=== PATIENT | male | born 2000 | race Caucasian/White ===

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

== ENCOUNTER → 2023-02-23 | Outpatient (CLI) | payer OTHER ==
[2023-02-23 16:07] LABS: African American GFR (CKD) 123.3 (60.0-200.0); Albumin 4.8 g/dL (3.8-4.9); Blood Urea Nitrogen 8.8 mg/dL (9.0-27.0); C Reactive Protein <0.30 mg/dL (0.00-0.80); Calcium 10.3 mg/dL (8.7-10.3); Carbon Dioxide 26.9 mmol/L (20.0-27.5); Chloride 100 mmol/L (96-109); Glucose 87 mg/dL (70-110); Non-African American GFR(CKD) 106.4 (60.0-200.0); Phosphorus 3.5 mg/dL (2.4-5.1); Potassium 4.1 mmol/L (3.5-5.5); Sodium 139 mmol/L (135-145)
[2023-02-23 19:26] LABS: Gliadin AB IgA, Deaminated NEGATIVE (NEGATIVE); Gliadin AB IgA, Unit 1.5 U/mL; Gliadin AB IgG, Deaminated NEGATIVE (NEGATIVE); Gliadin AB IgG, Unit <0.4 U/mL
== END | disposition home or self-care (01) ==
LOC: LABWHC1 09:26
PROVIDERS: ATTEND Nurse Practitioner Family
DX: K59.09 Other constipation (principal); R63.4 Abnormal weight loss
CPT/HCPCS: 36415; 80069; 83516; 85652; 86140

== ENCOUNTER → 2023-03-02 | Outpatient (CLI) | payer OTHER ==
--- NOTE | 2023-03-02 20:13 | CT ---
EXAMINATION TYPE: CT abdomen pelvis wo/w con CT DLP: 908.0 mGycm, Automated exposure control for dose reduction was used. DATE OF EXAM: 03/02/2023 7:39 PM COMPARISON: none CLINICAL INDICATION:Male, 22 years old with history of R63.4 abnormal weight loss; Constipation x1yr. unexplained weight loss, 30lbs in the past yr. TECHNIQUE: Axial CT of the abdomen and pelvis within without IV contrast. Sagittal and coronal refor mats were created on a separate workstation. Contrast used:100cc mL of Isovue 300 with IV Contrast, Oral contrast used: with Oral Contrast FINDINGS: LOWER CHEST: Unremarkable ABDOMEN LIVER: Unremarkable GALLBLADDER AND BILE DUCTS: Unremarkable. PANCREAS: Unremarkable. SPLEEN: Unremarkable. ADRENAL GLANDS: Unremarkable. KIDNEYS AND URETERS: No evidence of hydronephrosis or renal calculus. The ureters are unremarkable. PELVIS BLADDER: Unremarkable REPRODUCTIVE: Unremarkable. ABDOMEN & PELVIS STOMACH AND BOWEL: No evidence of bowel obstruction. PERITONEUM/RETROPERITONEUM: No evidence of pneumoperitoneum or free fluid. VASCULATURE: No evidence of aortic aneurysm. MUSCULOSKELETAL: No acute osseous abnormalities LYMPH NODES: No gross evidence for lymphadenopathy. SOFT TISSUE/ABDOMINAL WALL: Unremarkable IMPRESSION: No evidence for mass or lymphadenopathy.
== END | disposition home or self-care (01) ==
LOC: RADCTMAIN 17:23
PROVIDERS: ATTEND Internal Medicine Gastroenterology
DX: K59.00 Constipation, unspecified (principal); R63.4 Abnormal weight loss
CPT/HCPCS: 74178; Q9967